=== PATIENT | female | born 1950 | race Caucasian/White ===

== ENCOUNTER 2016-12-24 20:28 | Emergency (ER) | payer OTHER, BC ==
[2016-12-24 20:59] VITALS: BP 106/56; PULSE 65; TEMP 98; BMI 23.8
[2016-12-24] MEDS ORDERED: SODIUM CHLORIDE 1,000 ML IV STA (21:22)
--- NOTE | 2016-12-24 21:22 | PDOC ---
History of Present Illness - General Chief Complaint: Lightheaded Stated Complaint: HEAT EXHAUSTION Time Seen by Provider: 12/24/16 20:45 History Source: Patient Exam Limitations: No Limitations - History of Present Illness Initial Comments: 12/24/16 21:25 66-year-old female with a history of asthma presents to the emergency department complaining of general malaise, weakness and hyperventilation prior to her arrival after playing tennis outside in 97 temperature for an hour and 15 minutes. Patient states she felt extremely hot and had cramping to her arms and legs. She denied any fever, chills, nausea/vomiting, headache, dizziness, lightheadedness, chest pain, shortness of breath, abdominal pains, urinary symptoms. Patient says she was brought in by building with it was in a conditioning and she felt better gradually. Timing/Duration: 1 hour Associated Symptoms: reports: denies symptoms Past History - Past Medical History Allergies/Adverse Reactions: Allergies Allergy/AdvReac Type Severity Reaction Status Date / Time Sulfa (Sulfonamide Allergy Verified 12/24/16 21:28 Antibiotics) Home Medications: Ambulatory Orders Beclomethasone Dipropionate [Qvar] 8.7 mg PO DAILY 12/24/16 Montelukast Na [Singulair -] 5 mg PO HS 12/24/16 - Psycho/Social/Smoking Cessation Hx Suicidal Ideation: No Smoking History: Never smoked Have you smoked in the past 12 months: No Information on smoking cessation initiated: No Hx Alcohol Use: No Drug/Substance Use Hx: No Review of Systems - Review of Systems Able to Perform ROS?: Yes Comments:: 12/24/16 21:25 CONSTITUTIONAL: +generalized weakness Absent: fever, chills, diaphoresis, malaise, loss of appetite HEENT: Absent: rhinorrhea, nasal congestion, throat pain, throat swelling, difficulty swallowing, mouth swelling, ear pain, eye pain, visual Changes CARDIOVASCULAR: Absent: chest pain, loss of consciousness, palpitations, irregular heart rate, peripheral edema RESPIRATORY: Absent: cough, shortness of breath, dyspnea with exertion, orthopnea, wheezing, stridor, hemoptysis GASTROINTESTINAL: Absent: abdominal pain, abdominal distension, nausea, vomiting, diarrhea, constipation, melena, hematochezia GENITOURINARY: Absent: dysuria, frequency, urgency, hesitancy, hematuria, flank pain, genital pain MUSCULOSKELETAL: Absent: myalgia, arthralgia, joint swelling SKIN: Absent: rash, itching, pallor HEMATOLOGIC/IMMUNOLOGIC: Absent: easy bleeding, easy bruising, lymphadenopathy, frequent infections ENDOCRINE: Absent: unexplained weight gain, unexplained weight loss, heat intolerance, cold intolerance NEUROLOGIC: Absent: headache, focal weakness or paresthesias, dizziness, unsteady gait, seizure, mental status changes, bladder or bowel incontinence PSYCHIATRIC: Absent: anxiety, depression, suicidal or homicidal ideation, hallucinations. Is the patient limited Korean proficient: No *Physical Exam - Vital Signs Last Vital Signs Temp Pulse Resp BP Pulse Ox 98.0 F 65 20 106/56 98 12/24/16 20:42 12/24/16 20:42 12/24/16 20:42 12/24/16 20:42 12/24/16 20:42 - Physical Exam Comments: 12/24/16 21:25 GENERAL: Well developed, well nourished. Awake and alert. No acute distress. HEENT: Normocephalic, atraumatic. PERRLA, EOMI. No conjunctival pallor. Sclera are non- icteric. Moist mucous membranes. Oropharynx is clear. NECK: Supple. Full ROM. No JVD. Carotid pulses 2+ and symmetric, without bruits. No thyromegaly. No lymphadenopathy. CARDIOVASCULAR: Regular rate and rhythm. No murmurs, rubs, or gallops. Distal pulses are 2+ and symmetric. PULMONARY: No evidence of respiratory distress. Lungs clear to auscultation bilaterally. No wheezing, rales or rhonchi. ABDOMINAL: Soft. Non-tender. Non-distended. No rebound or guarding. No organomegaly. Normoactive bowel sounds. MUSCULOSKELETAL Normal range of motion at all joints. No bony deformities or tenderness. No CVA tenderness. EXTREMITIES: No cyanosis. No clubbing. No edema. No calf tenderness. SKIN: Warm and dry. Normal capillary refill. No rashes. No jaundice. NEUROLOGICAL: Alert, awake, appropriate. Cranial nerves 2-12 intact. No deficits to light touch and temperature in face, upper extremities and lower extremities. No motor deficits in the in face, upper extremities and lower extremities. Normoreflexic in the upper and lower extremities. Normal speech. Toes are down- going bilaterally. Gait is normal without ataxia. PSYCHIATRIC: Cooperative. Good eye contact. Appropriate mood and affect. ED Treatment Course - LABORATORY CBC & Chemistry Diagram: 12/24/16 21:50 12/24/16 21:50 *DC/Admit/Observation/Transfer Diagnosis at time of Disposition: Heat exhaustion Qualifiers: Encounter type: initial encounter Qualified Code(s): T67.5XXA - Heat exhaustion , unspecified, initial encounter - Discharge Dispostion Disposition: HOME Condition at time of disposition: Stable Admit: No - Referrals Referrals: Jackelin Caballero [Primary Care Provider] - - Patient Instructions Printed Discharge Instructions: DI for Heat Exhaustion and Heat Stroke Additional Instructions: Rest Increase fluids Follow with your physician this week Return back to the emergency department for severe/persistent or worsening symptoms.
--- NOTE | 2016-12-24 21:39 | PDOC ---
*Physical Exam - Vital Signs Last Vital Signs Temp Pulse Resp BP Pulse Ox 98.0 F 65 20 106/56 98 12/24/16 20:42 12/24/16 20:42 12/24/16 20:42 12/24/16 20:42 12/24/16 20:42 ED Treatment Course - LABORATORY CBC & Chemistry Diagram: 12/24/16 21:50 12/24/16 21:50 Medical Decision Making - Medical Decision Making 12/24/16 21:38 Pt seen by the Advanced Practice Provider under my direct supervision Ancillary studies reviewed I agree with plan as outlined by the Advanced Practice Provider LUCÍA Styles *DC/Admit/Observation/Transfer Diagnosis at time of Disposition: Heat exhaustion - Discharge Dispostion Disposition: HOME Condition at time of disposition: Stable - Referrals Referrals: Jackelin Caballero [Primary Care Provider] - - Patient Instructions Printed Discharge Instructions: DI for Heat Exhaustion and Heat Stroke Additional Instructions: Rest Increase fluids Follow with your physician this week Return back to the emergency department for severe/persistent or worsening symptoms.
[2016-12-24 22:07] LABS: BASOPHIL 0.3 % (0-2.0); EOSINOPHIL 1.5 % (0-4.5); MCH 30.8 pg (25.7-33.7); MCHC 32.4 g/dl (32.0-36.0); MEAN CELL VOLUME 94.8 fl (80-96); MEAN PLT VOLUME 8.9 fl (7.5-11.1); NEUTROPHILS 75.1 % (42.8-82.8); PLATELET COUNT 224 K/MM3 (134-434); RDW 13.3 % (11.6-15.6); WHITE BLOOD COUNT 9.4 K/mm3 (4.0-10.0)
[2016-12-24 22:38] LABS: ALBUMIN 3.5 g/dl (3.4-5.0); ALK PHOS 86 U/L (45-117); ANION GAP 9 (8-16); BILIRUBIN,TOTAL 0.4 mg/dL (0.2-1.0); CALCIUM 8.8 mg/dL (8.5-10.1); CO2 25 mmol/L (21-32); GLUCOSE,RANDOM 88 mg/dL (74-106); SGOT/AST 24 U/L (15-37); SGPT/ALT 25 U/L (12-78); TOT PROT 5.9 g/dl (6.4-8.2)
== END 2016-12-24 23:01 | disposition home or self-care (01) ==
LOC: JER 20:28
PROC: 3E0337Z Introduction of Electrolytic and Water Balance Substance into Peripheral Vein, Percutaneous Approach (ICD-10-PCS; principal; 2016-12-24)
DX: T67.5XXA Heat exhaustion, unspecified, initial encounter (principal); X50.0XXA Overexertion from strenuous movement or load, initial encounter; Y93.73 Activity, racquet and hand sports; Y92.312 Tennis court as the place of occurrence of the external cause; Y99.8 Other external cause status
CPT/HCPCS: 36415; 80053; 85025; 96360; 99282-25